=== PATIENT | female | born 1980 | race Hispanic/Latino ===

== ENCOUNTER 2023-09-02 18:56 | Emergency (ER) | payer SELFPAY ==
[~2023-09-02] VITALS: Ht 152.4 cm; Wt 72.6 kg
[~2023-09-02 18:56] MED LIST: HYDROCODON-ACE1 EA10 PO; ONDANSETRON ODT8 MG PO
--- OUTSIDE RECORDS SUMMARY | 2023-09-02 19:04 | XMS ---
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 Carolyn has no Care Guidelines for this patient. [facility] MO[facility] NOTE: Visits indicate total known visits. ED/C VISIT TRACKING (12 MO.) 09/02/2023 18:[address] [facility] [place] TYPE: Emergency COMPLAINT: - ABD PAIN 09/01/2023 19:07 [facility] [place] TYPE: Emergency COMPLAINT: - VOMITING INPATIENT VISIT TRACKING (12 MO.) No inpatient visits to display in this time frame [email or web address]
[2023-09-02 19:27] LABS: BILIRUBIN, URINE NEGATIVE (negative); BLOOD/HGB, URINE TRACE-I (Negative); KETONE, URINE NEGATIVE (Negative); LEUK ESTERASE, URINE NEGATIVE (negative); NITRITE, URINE NEGATIVE (negative)
[2023-09-02 19:32] LABS: BASOPHILS 0.8 % (0-2); HEMATOCRIT 40.9 % (35.0-50.0); HEMOGLOBIN 13.8 g/dL (12.0-18.0); LYMPHOCYTES 25.6 % (24-44); MCH 32.5 (27-36); MCHC 33.6 g/dl (30-36); MCV 96.5 fl (81-99); MONOCYTES 5.6 % (0-12); PLATELET COUNT 373 K/uL (140-440); RBC 4.24 M/ul (4.3-5.7); RDW 13.4 (10.5-15.0)
[2023-09-02 19:38] LABS: EPITHELIAL CELLS, URINE SQUAMOUS 3+ /lpf (0-1+); RED BLOOD CELLS, URINE 0-1 /hpf (0-5); REFLEX CULTURE, URINE No (No); WHITE BLOOD CELLS, URINE 0-1 /HPF (0-5)
[2023-09-02 19:43] LABS: ALBUMIN/GLOBULIN RATIO 1.08 (1.1-2.4); ANION GAP 11.7 (7-21); BILIRUBIN, TOTAL 0.2 ng/dL (0.2-1.0); BUN/CREATININE RATIO 12.94 (6.0-28.6); CALCIUM 8.9 mg/dL (8.5-10.1); CREATININE, SERUM 0.85 mg/dL (0.55-1.02); POTASSIUM 3.7 mmol/L (3.5-5.1); PROTEIN, TOTAL 7.7 g/dL (6.4-8.2)
[2023-09-02] MEDS ORDERED: MIRALAX119 GM PO (21:58)
[2023-09-02] MEDS ORDERED: IBU800 MG PO (21:58)
[2023-09-02 22:08] VITALS: BP 146/80
== END 2023-09-02 22:10 | disposition home or self-care (01) ==
LOC: ED 18:56
PROVIDERS: Internal Medicine
DX: K59.00 Constipation, unspecified (principal); Z79.899 Other long term (current) drug therapy
CPT/HCPCS: 36415; 80053; 81001; 82150; 83735; 84703; 85025; J1170; J1790; J1885; J2405; J7121

== ENCOUNTER 2023-09-05 05:47 | Emergency (ER) | payer SELFPAY ==
[~2023-09-05] VITALS: Ht 152.4 cm; Wt 72.6 kg
[~2023-09-05 05:47] MED LIST changes: +IBU800 MG PO; +MIRALAX119 GM PO
--- OUTSIDE RECORDS SUMMARY | 2023-09-05 05:50 | XMS ---
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 - 2 Visits in 30 Days CARE PROVIDERS There are no care providers on record at this time. Carolyn has no Care Guidelines for this patient. Cassie V[facility] (12 MO.) [facility] T[facility] 3 NOTE: Visits indicate total known visits. 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
[2023-09-05 06:21] LABS: BASOPHILS 0.5 % (0-2); HEMOGLOBIN 13.9 g/dL (12.0-18.0); LYMPHOCYTES 22.6 % (24-44); MCH 32.4 (27-36); MCV 95.2 fl (81-99); MONOCYTES 5.8 % (0-12); NEUTROPHILS 70.1 % (39-80); PLATELET COUNT 350 K/uL (140-440); RDW 13.3 (10.5-15.0)
[2023-09-05 06:23] LABS: BILIRUBIN, URINE NEGATIVE (negative); BLOOD/HGB, URINE TRACE-I (Negative); KETONE, URINE NEGATIVE (Negative); LEUK ESTERASE, URINE SMALL (negative); NITRITE, URINE NEGATIVE (negative)
[2023-09-05 06:29] LABS: BACTERIA, URINE RARE /hpf (negative); CASTS, URINE NONE SEEN \\lpf; CRYSTALS, URINE NONE SEEN (0-1+); EPITHELIAL CELLS, URINE SQUAMOUS 3+ /lpf (0-1+); REFLEX CULTURE, URINE No (No)
[2023-09-05 06:33] LABS: ALBUMIN 3.9 g/dL (3.4-5.0); ANION GAP 15.9 (7-21); BILIRUBIN, TOTAL 0.3 ng/dL (0.2-1.0); BUN/CREATININE RATIO 13.92 (6.0-28.6); CALCIUM 8.8 mg/dL (8.5-10.1); CREATININE, SERUM 0.79 mg/dL (0.55-1.02); POTASSIUM 3.9 mmol/L (3.5-5.1); PROTEIN, TOTAL 7.8 g/dL (6.4-8.2)
[2023-09-05] MEDS ORDERED: CEPHALEXIN500 M1 PO (06:50)
[2023-09-05 07:29] VITALS: BP 146/99
== END 2023-09-05 07:25 | disposition home or self-care (01) ==
LOC: ED 05:47
PROVIDERS: Emergency Medicine
DX: R10.32 Left lower quadrant pain (principal); N39.0 Urinary tract infection, site not specified
CPT/HCPCS: 36415; 80053; 81001; 84703; 85025; A9270; J1885

== ENCOUNTER 2024-09-13 09:31 | Emergency (ER) | payer BC ==
[~2024-09-13] VITALS: Ht 152.4 cm; Wt 76.1 kg
[~2024-09-13 09:31] MED LIST changes: +CEPHALEXIN500 M1 PO
[2024-09-13] MEDS ORDERED: AMOXICILLIN500 MG PO (11:05)
[2024-09-13 11:20] VITALS: BP 105/85
== END 2024-09-13 11:20 | disposition home or self-care (01) ==
LOC: ED 09:31
DX: J02.9 Acute pharyngitis, unspecified (principal)
CPT/HCPCS: 87651; 99283